=== PATIENT | male | born 1940 | race Caucasian/White ===

== ENCOUNTER 2016-12-09 11:51 | Emergency (ER) | payer MEDICARE, BC ==
[2016-12-09] MEDS ORDERED: Morphine INJ* 4 MG/ML 1 ML CARPUJECT IV ONE (12:54)
--- NOTE | 2016-12-09 13:13 | ED ---
Back Pain - HPI Summary HPI Summary: Patient presents to the ED with CC of back pain after falling off a chair while changing a light bulb. He states he landed directly onto his back. Denies LOC or hitting his head. He was able to ambulate after the injury, but with pain. He notes to persistent pain despite taking Tylenol. He also states he has a cardiac condition and has been having some chest pains since the accident, but states likely that is d/t the accident from pulling some muscles. He denies confusion, memory loss, N/V/C/D. Denies bladder or bowel dysfunction, but has some at baseline - nothing worse since the accident. He notes to lower lumbar pain which is achy, rated a 8/10 and constant. Better with heat and position. - History of Current Complaint Chief Complaint: EDBackInjuryPain Stated Complaint: FALL/BACK PAIN Time Seen by Provider: 12/09/16 12:35 Hx Obtained From: Patient Onset/Duration: Sudden Onset Onset/Duration: Started Hours Ago Timing: Constant Back Pain Location: Is Discrete @ - lumbar spine Severity Initially: Moderate Severity Currently: Moderate Pain Intensity: 7 Pain Scale Used: 0-10 Numeric Character: Aching Aggravating Symptom(s): Movement, Lifting, Bending Alleviating Symptom(s): Rest, Position Associated Signs And Symptoms: Positive: Negative - Risk Factors AAA Risk Factors: Negative Cauda Equina Risk Factors: Negative Epidural Abscess Risk Factors: Negative - Allergies/Home Medications Allergies/Adverse Reactions: Allergies Allergy/AdvReac Type Severity Reaction Status Date / Time Benzalkonium Chloride Allergy Unknown Unknown Verified 09/16/15 14:58 [From Travatan] Reaction Details Malt Allergy Unknown Unknown Verified 09/16/15 14:58 Reaction Details Travoprost [From Travatan] Allergy Unknown Unknown Verified 09/16/15 14:58 Reaction Details Losartan Allergy Unknown Verified 07/18/16 07:54 Reaction Details Penicillins AdvReac Intermediate Itches, Verified 09/16/15 14:58 MILD RASH Yeast AdvReac Unknown GI Upset Verified 09/16/15 14:58 soy Allergy Severe Pain Uncoded 09/16/15 14:58 Barley Allergy Unknown Unknown Uncoded 09/16/15 14:58 Reaction Details Coconut Allergy Unknown Unknown Uncoded 09/16/15 14:58 Reaction Details Dairy Products Allergy Unknown GI Upset Uncoded 09/16/15 14:58 DUST MITES Allergy Unknown Uncoded 09/16/15 14:58 Reaction Details MUSHROOMS Allergy Unknown Uncoded 09/16/15 14:58 Reaction Details PMH/Surg Hx/FS Hx/Imm Hx Previously Healthy: Yes Endocrine/Hematology History: Reports: Hx Anemia Denies: Hx Diabetes, Hx Systemic Lupus Erythematosus Cardiovascular History: Reports: Hx Angina, Hx Hypercholesterolemia, Hx Hypertension Denies: Hx Congestive Heart Failure, Hx Coronary Artery Disease, Hx Myocardial Infarction, Hx Valvular Heart Disease Respiratory History: Reports: Hx Sleep Apnea - CPAP Denies: Hx Asthma, Hx Chronic Obstructive Pulmonary Disease (COPD) GI History: Reports: Hx Irritable Bowel, Other GI Disorders - IBS / CONSTIPATION History: Reports: Hx Benign Prostatic Hyperplasia, Other Problems/ Disorders - prostrate Denies: Hx Dialysis, Hx Renal Disease Musculoskeletal History: Reports: Hx Arthritis - Osteoarthritis, Hx Fibromyalgia , Other Musculoskeletal History - osteoarthritis in shoulders Denies: Hx Rheumatoid Arthritis Sensory History: Reports: Hx Cataracts - HX OF, Hx Contacts or Glasses, Hx Glaucoma - left eye, now on eye drops, cannot drive, Hx 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 Denies: Hx Hearing Aid Opthamlomology History: Reports: Hx Cataracts - HX OF, Hx Contacts or Glasses, Hx Glaucoma - left eye, now on eye drops, cannot drive Neurological History: Reports: Other Neuro Impairments/Disorders - Chronic numbness in toes - takes gabapentin Psychiatric History: Reports: Hx Anxiety, Hx Depression - Cancer History Cancer Type, Location and Year: 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 Hx Chemotherapy: Yes Hx Radiation Therapy: No Hx Palliative Cancer Treatment: No - Surgical History Surgery Procedure, Year, and Place: BILATERAL CATARACTS-1994-[facility] RE[facility]IR -[facility] Hx Anesthesia Reactions: No Infectious Disease History: Yes Infectious Disease History: Denies: Traveled Outside the [place] in Last 30 Days - Social History Occupation: Unemployed Lives: With Family Alcohol Use: Rare Alcohol Amount: approx once a month Hx Substance Use: No Substance Use Type: Reports: None Smoking Status (MU): Never Smoked Tobacco Have You Smoked in the Last Year: No Review of Systems Constitutional: Negative Negative: Fever, Chills, Fatigue ENT: Negative Positive: Chest Pain Respiratory: Negative Negative: Abdominal Pain, Vomiting, Diarrhea Positive: no symptoms reported, see HPI Positive: Arthralgia, Myalgia Skin: Negative Neurological: Negative All Other Systems Reviewed And Are Negative: Yes Physical Exam Triage Information Reviewed: Yes Vital Signs On Initial Exam: Initial Vitals Temp Pulse Resp BP Pulse Ox 98.3 F 64 12 173/65 98 12/09/16 11:57 12/09/16 11:57 12/09/16 11:57 12/09/16 11:57 12/09/16 11:57 Vital Signs Reviewed: Yes Appearance: Positive: Well-Appearing, Well-Nourished Skin: Positive: Warm, Skin Color Reflects Adequate Perfusion Head/Face: Positive: Normal Head/Face Inspection Eyes: Positive: EOMI, SIMONE, Conjunctiva Clear Neck: Positive: Supple, No Lymphadenopathy Respiratory/Lung Sounds: Positive: Clear to Auscultation, Breath Sounds Present Cardiovascular: Positive: RRR, Pulses are Symmetrical in both Upper and Lower Extremities Musculoskeletal: Positive: Pain @ - lumbar spine Neurological: Positive: Sensory/Motor Intact, Alert, Oriented to Person Place, Time, Speech Normal Psychiatric: Positive: Normal AVPU Assessment: Alert - [place] Coma Scale Coma Scale Total: 15 Diagnostics - Vital Signs Vital Signs Temp Pulse Resp BP Pulse Ox 12/09/16 12:28 57 14 95 12/09/16 11:57 98.3 F 64 12 173/65 98 - Laboratory Result Diagrams: 12/09/16 13:10 12/09/16 13:10 Lab Statement: Any lab studies that have been ordered have been reviewed, and results considered in the medical decision making process. Back Pain Course/Dx - Course Course Of Treatment: Patient is sent to CT scan: IMPRESSION: 1. DEGENERATIVE DISC DISEASE AND OSTEOARTHRITIS. 2. THERE IS A LEFT-SIDED DISC PROTRUSION AT L4 -L5 WITH MILD NARROWING OF THE CENTRAL. CANAL AND MODERATE LEFT NEURAL FORAMINAL NARROWING. 3. THERE IS NO ACUTE OSSEOUS INJURY TO THE LUMBAR SPINE. This could be acute or chronic. There is nothing emergent, however d/t bulging disc and pain 10/18 - will be given pain management. Chest xray: IMPRESSION: Small left pleural effusion with left basilar atelectasis versus early. consolidation. Denies any SOB or chest pain at rest. He is followed by PCP and cardiology. Discussed case with Dr. Golden. D/t small effusion - will defer back to PCP for further evaluation. Pain medication given for back injury likely contusion. He will follow up with Dr. Giraldo if symptoms persist. He is given a tramadol taper up of pain control and strict parameters given on cessation of the medication if he develops decreased work of breathing , AMS, extreme fatige, chest pains or other concerning symptoms. He is OK with discharge and states he will follow up on this week. - Diagnoses Differential Diagnosis/HQI/PQRI: Positive: Herniated Disc, Strain, Sprain Provider Diagnoses: Pleural effusion, Disc herniation Discharge - Discharge Plan Condition: Stable Disposition: HOME Prescriptions: traMADol TAB* [Ultram*] 25 mg PO Q8H PRN #15 tab MDD 4 PRN Reason: Pain traMADol TAB* [Ultram*] 25 mg PO Q8H PRN #15 tab MDD 4 PRN Reason: Pain traMADol TAB* [Ultram*] 25 mg PO Q8H PRN #15 tab MDD 4 PRN Reason: Pain Patient Education Materials: Lumbar Disc Herniation (ED), Pleural Effusion (ED) Referrals: Camron Casillas MD [Primary Care Provider] - Additional Instructions: Tramadol: You may take: 25 mg three times daily for 2 days. You may then increase the dose by 25 mg for the next 2 days equating to 25mg four times daily. Dose may then be increased by 50 mg for the following 3 days to equate to 50mg three times daily. Do not take more than 50mg three times daily until you follow up with your doctor for further evaluation. As discussed, you have a small pleural effusion. Please explain this to your doctor on next appt. You have no fever or other systemic signs of illness. If you begin to have fevers, sweats or chills, difficulty breathing, shortness of breath, worsening chest pain or back pain - please return to the ED immediately. Moist heat to the area for comfort. (heating pad) Hot showers, etc.
--- NOTE | 2016-12-09 13:32 | RAD ---
HISTORY: Chest pain COMPARISONS: June 08, 2016 VIEWS: 1: frontal portable view of the chest at 1:12 PM FINDINGS: LINES AND TUBES: None. CARDIOMEDIASTINAL SILHOUETTE: The cardiomediastinal silhouette is normal for portable technique. PLEURA: There is blunting of the left costophrenic angle LUNG PARENCHYMA: There is linear opacification of left lung base ABDOMEN: The upper abdomen is clear. There is no subphrenic gas. BONES AND SOFT TISSUES: No bone or soft tissue abnormalities are noted. IMPRESSION: Small left pleural effusion with left basilar atelectasis versus early consolidation.
[2016-12-09 13:34] LABS: Hematocrit 41 % (42-52); Hemoglobin 14.2 g/dl (14.0-18.0); Mean Corpuscular HGB Conc 35 g/dl (31-36); Mean Corpuscular Hemoglobin 35 pg (27-31); Mean Corpuscular Volume 101 fL (80-94); Mean Platelet Volume 9 um3 (7.4-10.4); Red Blood Count 4.06 10^6/ul (4.0-5.4); Red Cell Distribution Width 13 % (10.5-15); White Blood Count 5.4 10^3/ul (3.5-10.8)
[2016-12-09 13:44] LABS: EGFR African American 125.7 (>60); EGFR Non-African American 97.7 (>60); Globulin 2.3 g/dL (2-4); Potassium 3.7 mmol/L (3.5-5.0); Total Bilirubin 0.5 mg/dL (0.2-1.0); Total Protein 6.3 g/dL (6.4-8.9)
[2016-12-09 13:47] LABS: Troponin I 0.01 ng/mL (<0.04)
--- NOTE | 2016-12-09 14:00 | RAD ---
HISTORY: Fall, back pain COMPARISONS: CT dated May 14, 2014 TECHNIQUE: Multiple contiguous axial CT scans were obtained of the lumbar spine without intravenous contrast, with coronal and sagittal multiplanar reformations. FINDINGS: SPINAL CANAL: Evaluation of the central canal is limited on CT technique; however, there is no obvious canalicular mass or epidural hemorrhage. ALIGNMENT: The alignment is normal. VERTEBRAL BODIES: There is multilevel anterolateral marginal osteophyte formation. The vertebral bodies are preserved in height. There is no displaced fracture. JOINTS: There is facet osteoarthritic change most pronounced along the lower lumbar spine MUSCULATURE: Unremarkable INTERVERTEBRAL DISCS: There is diffuse loss of intervertebral disc height throughout the spine. AXIAL IMAGES: T12-L1: There is no osseous neural foraminal narrowing or central canal stenosis. L1-L2: There is no osseous neural foraminal narrowing or central canal stenosis. L2-L3: There is no osseous neural foraminal narrowing or central canal stenosis. L3-L4: There is no osseous neural foraminal narrowing or central canal stenosis. L4-L5: There is left lateral recess and foraminal disc protrusion measuring 0.5 cm in depth. There is moderate left neural foraminal narrowing. There is ligamentous and facet hypertrophy. There is mild narrowing of the central canal. L5-S1: There is no osseous neural foraminal narrowing or central canal stenosis. SOFT TISSUES: There is atherosclerosis of the abdominal aorta OTHER: None IMPRESSION: 1. DEGENERATIVE DISC DISEASE AND OSTEOARTHRITIS. 2. THERE IS A LEFT-SIDED DISC PROTRUSION AT L4-L5 WITH MILD NARROWING OF THE CENTRAL CANAL AND MODERATE LEFT NEURAL FORAMINAL NARROWING. 3. THERE IS NO ACUTE OSSEOUS INJURY TO THE LUMBAR SPINE.
[2016-12-09 15:07] VITALS: BP 175/60
== END 2016-12-09 15:07 | disposition home or self-care (01) ==
LOC: ED 11:51
DX: M51.26 Other intervertebral disc displacement, lumbar region (principal); J90 Pleural effusion, not elsewhere classified; W07.XXXA Fall from chair, initial encounter; Y92.9 Unspecified place or not applicable; F32.9 Major depressive disorder, single episode, unspecified; F41.9 Anxiety disorder, unspecified
CPT/HCPCS: 36415; 71010; 72131; 80053; 82550; 82553; 83735; 83874; 83880; 84484; 85025; 85610; 85730; J2270

== ENCOUNTER 2018-09-28 10:10 | Emergency (ER) | payer MEDICARE ==
[2018-09-28 10:30] VITALS: BP 131/51
--- NOTE | 2018-09-28 11:30 | UC ---
Throat Pain/Nasal Con HPI - HPI Summary HPI Summary: Patient is an 78-year-old male who presents to the urgent care with a chief complaint of having throat pain mostly in the right side of the throat, and right ear pain. Patient is be having the symptoms for the last couple days. He has taken ibuprofen and his symptoms have subsided. However this morning he started having some pain again therefore he decided to come to the urgent care. He denies any fevers or chills, he denies any trismus, denies any swelling of the throat, denies any swelling of the tongue or lips. He has no other complaints - History of Current Complaint Chief Complaint: UCEar Stated Complaint: THROAT Time Seen by Provider: 09/28/18 10:33 Hx Obtained From: Patient Onset/Duration: Gradual Onset Severity: Mild Pain Intensity: 7 - Allergies/Home Medications Allergies/Adverse Reactions: Allergies Allergy/AdvReac Type Severity Reaction Status Date / Time soy Allergy GI Upset Verified 09/28/18 10:31 Yeast Allergy Rash Verified 09/28/18 10:31 Home Medications: Home Medications Acetaminophen 1 tab PO DAILY PRN 09/28/18 [History Confirmed 09/28/18] Gabapentin 1 tab PO QPM 09/28/18 [History Confirmed 09/28/18] Ibuprofen 2 tab PO ONCE PRN 09/28/18 [History Confirmed 09/28/18] Loratadine 1 tab PO DAILY 09/28/18 [History Confirmed 09/28/18] [place]-3 Fatty Acids/Fish Oil [Fish Oil 1,000 mg Softgel] 1 tab PO DAILY [History Confirmed 09/28/18] Tamsulosin HCl 1 tab PO DAILY 09/28/18 [History Confirmed 09/28/18] Venlafaxine CAP (NF) [Effexor CAP (NF)] 1 tab PO DAILY 09/28/18 [History Confirmed 09/28/18] PMH/Surg Hx/FS Hx/Imm Hx Previously Healthy: Yes Psychological History: Depression - Surgical History Surgical History: None - Family History Known Family History: Positive: Non-Contributory - Social History Alcohol Use: None Substance Use Type: None Smoking Status (MU): Never Smoked Tobacco Review of Systems All Other Systems Reviewed And Are Negative: Yes Constitutional: Positive: Negative Skin: Positive: Negative Eyes: Positive: Negative ENT: Positive: Sore Throat, Other - Right ear pain Respiratory: Positive: Negative Cardiovascular: Positive: Negative Gastrointestinal: Positive: Negative Genitourinary: Positive: Negative Motor: Positive: Negative Neurovascular: Positive: Negative Musculoskeletal: Positive: Negative Neurological: Positive: Negative Psychological: Positive: Negative Is Patient Immunocompromised?: No Physical Exam - Summary Physical Exam Summary: Vital signs: Reviewed Gen.: Patient is a well developed and nourished male in no acute distress. Patient is sitting comfortably on the stretcher. Head: Normacephalic and atraumatic Eyes: PERRLA, EOMI x2. Ears: Right ear canal with dried wax and after removed of the wax TM WNL Left ear canal and TM WNL Nose Nose with dry mucosa and clear discharge. No sinus tenderness and mouth: No pharyngeal erythema Neck: Supple, no bilateral submandibular and anterior cervical lymphadenopathy. No JVD Lungs: CTA B/L CVS: S1 & S2 present. No murmurs appreciated. ABDOMEN: Soft NT w/ positive BS. EXT: FROM x 4 NEURO: A+O X 3. Triage Information Reviewed: Yes Appearance: Well-Appearing Vital Signs: Initial Vital Signs Temp 98 F 09/28/18 10:23 Pulse 71 09/28/18 10:23 Resp 18 09/28/18 10:23 BP 131/51 09/28/18 10:23 Pulse Ox 100 09/28/18 10:23 Vital Signs Reviewed: Yes Throat Pain/Nasal Course/Dx - Course Course Of Treatment: Rapid strep is negative. After removal of the wax the ears are within normal limits. Therefore the patient was recommended to take ibuprofen for pain and follow up with the primary care physician. If the symptoms worsen or return to he should return to the urgent care or go to the ENT. The patient understands and agrees. Patient is hemodynamically stable alert and oriented 3. - Differential Dx/Diagnosis Provider Diagnosis: Ear pain, right, Acute viral pharyngitis Discharge - Sign-Out/Discharge Documenting (check all that apply): Patient Departure All imaging exams completed and their final reports reviewed: No Studies - Discharge Plan Condition: Stable Disposition: HOME Patient Education Materials: Pharyngitis (ED), Earache (ED) Referrals: No Primary Care Phys,NOPCP [Primary Care Provider] - [facility] [place] [facility] [Outside] Additional Instructions: Take ibuprofen or Tylenol for the pain. Follow-up with primary care physician. - Billing Disposition and Condition Condition: STABLE Disposition: Home
== END 2018-09-28 11:38 | disposition home or self-care (01) ==
LOC: UCEAST 10:10 → MERGE 10:10 → UCEAST 11:38
DX: J02.8 Acute pharyngitis due to other specified organisms (principal); H92.01 Otalgia, right ear; F32.9 Major depressive disorder, single episode, unspecified
CPT/HCPCS: 87651; 99202; G0463